=== PATIENT | male | born 1970 | race Two or more races ===

== ENCOUNTER 2020-03-06 12:18 | Inpatient (IN) | payer OTHER ==
[~2020-03-06] VITALS: Ht 165.1 cm; Wt 97.3 kg
[2020-03-06] MEDS ORDERED: SODIUM CHLORIDE 0.9% 1,000 ML IV ONE ×2 (12:22)
[2020-03-06] MEDS ORDERED: MORPHINE SULFATE 4 MG/ML SYR/VIAL IV ONE (12:30)
[2020-03-06] MEDS ORDERED: ONDANSETRON HCL 4 MG/2 ML VIAL IV ONE (12:30)
[2020-03-06] MEDS ORDERED: InsuLIN REG 1unit/0.01ml Soln (100units/ml) IV ONE ×2 (12:30→13:15)
[2020-03-06 13:34] LABS: Basophils # (auto) 0.1 10 ^3/uL (0-0.2); Basophils % (auto) 0.7 % (0.0-2.0); Eosinophils # (auto) 0.1 10 ^3/uL (0-0.8); Eosinophils % (auto) 0.8 % (0.0-7.0); Hematocrit 43.6 % (41.0-53.0); Hemoglobin 15.4 g/dL (13.5-17.5); Lymphocytes # (auto) 3.3 10 ^3/uL (0.4-5.4); Lymphocytes % (auto) 33.9 % (10.0-50.0); Mean Corpuscular Hemoglobin 29.6 pg (28.0-32.0); Mean Corpuscular Hgb Conc. 35.3 g/dL (32.0-36.0); Monocytes # (auto) 0.6 10 ^3/uL (0-1.3); Monocytes % (auto) 6.4 % (0.0-12.0); Neutrophils # (auto) 5.7 10 ^3/uL (1.6-8.6); Neutrophils % (auto) 58.2 % (37.0-80.0); Nucleated Red Blood Cells % 0.1 %; Platelet Count (auto) 288 10^3/uL (140-450); Red Blood Cells 5.18 10^6/uL (4.5-5.90); Red Cell Distribution Width 13.6 % (11.8-14.3); White Blood Cell 9.8 10^3/uL (4.4-10.8)
[2020-03-06 13:50] LABS: INR 0.97 (0.9-1.15); Partial Thromboplastin Time 24.8 sec (23.64-32.05)
[2020-03-06 13:57] LABS: Albumin 3.5 g/dL (3.4-5.0); Anion Gap 7 (5-15); Blood Urea Nitrogen 14 mg/dL (7-18); Calcium 8.3 mg/dL (8.5-10.1); Carbon Dioxide 23 mmol/L (21-32); Chloride 103 mmol/L (98-107); Glucose 255 mg/dL (74-106); Potassium 3.6 mmol/L (3.5-5.1); Sodium 133 mmol/L (136-145)
[2020-03-06 14:03] LABS: Alanine Aminotransferase 31 U/L (16-61); Alkaline Phosphatase 80 U/L (45-117); Aspartate Aminotransferase 16 U/L (15-37); BUN/Creatinine Ratio 18.9; Bilirubin, Total 0.4 mg/dL (0.2-1.0); GFR African American 143 mL/min; GFR Non-African American 119 mL/min; Total Protein 7.6 g/dL (6.4-8.2)
[2020-03-06] MEDS ORDERED: MORPHINE SULF INJ 2 MG/ML SYRINGE 1ML IV PRN (15:15)
[2020-03-06] MEDS ORDERED: NITROGLYCERIN 0.4 MG SL TAB SL PRN (15:15)
--- NOTE | 2020-03-06 17:00 | NUR ---
PATIENT ARRIVED TO UNIT. A&OX4. PATIENT HAS NO S/S OF DISTRESS NOTED AT THIS TIME.
[2020-03-06 18:04] LABS: Urine Bacteria NONE SEEN /hpf (None Seen); Urine Blood Negative /uL (Negative); Urine Mucus FEW (None Seen); Urine Specific Gravity 1.013 (1.001-1.035); Urine WBC 1 /hpf (0 - 3)
--- NOTE | 2020-03-06 19:30 | NUR ---
Called/paged Dr. Bauer called regarding patient complaining of headache and requesting pain meds. Waiting for call back. Continue care.
--- NOTE | 2020-03-06 19:30 | NUR ---
Opening Shift Note Assumed care of patient, awake and alert. No S/S of distress/SOB or pain. Instructed on POC and to call for assist PRN. Bed in lowest locked position, call light within reach, side rails upx2. Will continue to monitor for changes Q1hr and PRN.
--- NOTE | 2020-03-06 20:00 | NUR ---
Called/paged Dr. Bauer repaged regarding patient requesting pain medication. Waiting for call back.Continue care.
--- NOTE | 2020-03-06 21:05 | NUR ---
Received report from Wilson Tuttle to assume care.
--- NOTE | 2020-03-06 21:05 | NUR ---
Endorsed patient care Endorsed care of patient to Leslie RN.
[2020-03-06 22:00] VITALS: BP 140/78
--- NOTE | 2020-03-06 22:00 | NUR ---
Paged for pain med for headache with order of Machias 10/325mg.one tab.p.o as needed every four hour.
[2020-03-06] MEDS: HYDROcodone-ACET 10/325MG TAB PO PRN (22:45)
[2020-03-07] VITALS (7 sets, daily range): BP systolic 115–138; BP diastolic 71–96
[2020-03-07] MEDS ORDERED: METF-370 PO (00:36)
--- NOTE | 2020-03-07 07:11 | NUR ---
Report given to Wilson Pelayo, patient is resting and to follow-up to Soham if he wants to have sliding scale for accucheck.
--- NOTE | 2020-03-07 07:30 | NUR ---
Opening Shift Note Assumed care of patient, awake and alert. No S/S of distress/SOB or pain. Instructed on POC and to call for assist PRN, will continue to monitor for changes Q1hr and PRN.
[2020-03-07] MEDS: LISINOPRIL 10 MG TAB PO SCH (09:39)
[2020-03-07] MEDS: ASPirin-EC 81 mg tab PO SCH (09:39)
[2020-03-07] MEDS: METOPROLOL TARTRATE 25 MG TAB PO SCH (09:39)
[2020-03-07] MEDS ORDERED: DEXTROSE (50%) 50ML SYRG IV PRN (14:45)
[2020-03-07] MEDS: ACCU-CHEK COMFORT CURVE STRIP VI SCH ×2 (17:25→21:55)
[2020-03-07] MEDS: InsuLIN REG 1unit/0.01ml Soln (100units/ml) SC SCH ×2 (17:25→21:57)
--- NOTE | 2020-03-07 17:46 | NUR ---
patient and belongings moved to room 270b
--- NOTE | 2020-03-07 20:10 | NUR ---
Opening Shift Note Assumed care of patient, awake and alert. No S/S of distress/SOB. Patient is on room air. Respirations even and unlabored. Patient reports 9/10 headache. Patient will be medicated with PRN pain medication per MD order. Instructed on POC and to call for assist PRN, will continue to monitor for changes Q1hr and PRN.
[2020-03-07] MEDS: HYDROcodone-ACET 10/325MG TAB PO PRN (20:12)
--- NOTE | 2020-03-07 20:12 | NUR ---
Patient agrees to take Ringgold 10/325 mg PO tablet for 9/10 headache. Will continue to monitor patient.
--- NOTE | 2020-03-07 21:12 | NUR ---
Patient has no complaints of pain.
[2020-03-08] VITALS (7 sets, daily range): BP systolic 106–136; BP diastolic 68–93
--- NOTE | 2020-03-08 01:10 | NUR ---
IV removal from right hand due to clotting. IV DC'd with clean sterile technique, catheter fully intact. Pressure dressing applied to site. Patient tolerated well. Addendum: 03/09/20 at 0413 by Kaila Taveras RN Correct date is 03/09/20
[2020-03-08] MEDS: ACCU-CHEK COMFORT CURVE STRIP VI SCH ×4 (06:25→21:50)
[2020-03-08] MEDS: InsuLIN REG 1unit/0.01ml Soln (100units/ml) SC SCH ×4 (06:26→21:50)
--- NOTE | 2020-03-08 07:00 | NUR ---
CLOSING NOTE No S/S of distress/SOB or pain. Patient is on room air. Respirations even and unlabored.
[2020-03-08] MEDS: ASPirin-EC 81 mg tab PO SCH (09:31)
[2020-03-08] MEDS: METOPROLOL TARTRATE 25 MG TAB PO SCH (09:32)
[2020-03-08] MEDS: LISINOPRIL 10 MG TAB PO SCH (09:32)
[2020-03-08] MEDS: ENOXAPARIN SOD 40 MG/0.4 ML SYRINGE SC SCH (09:33)
[2020-03-08] MEDS: HYDROcodone-ACET 10/325MG TAB PO PRN ×2 (14:28→19:59)
--- NOTE | 2020-03-08 19:59 | NUR ---
Patient agrees to take Jackson 10/325 mg PO tablet for 9/10 headache. Will continue to monitor patient.
--- NOTE | 2020-03-08 20:59 | NUR ---
Patient has no complaints of pain.
[2020-03-09] MEDS: HYDROcodone-ACET 10/325MG TAB PO PRN ×2 (00:02→23:52)
--- NOTE | 2020-03-09 00:02 | NUR ---
Patient agrees to take Allen[place] 10/325 mg PO tablet for 9/10 headache. Will continue to monitor patient.
--- NOTE | 2020-03-09 01:02 | NUR ---
Patient has no complaints of pain.
--- NOTE | 2020-03-09 01:10 | NUR ---
IV removal from right hand due to clotting. IV DC'd with clean sterile technique, catheter fully intact. Pressure dressing applied to site. Patient tolerated well.
--- NOTE | 2020-03-09 01:15 | NUR ---
IV insertion IV access obtained, via clean sterile technique by inserting 20 gauge catheter at right forearm after 1 attempt by Bisi CONWAY. IV secured properly. No trauma to site. Patient tolerated well. This RN had 3 previous unsuccessful attempts.
--- NOTE | 2020-03-09 01:20 | NUR ---
IV insertion IV access obtained, via clean sterile technique by inserting 20 gauge catheter at right forearm after 1 attempt by Bisi CONWAY. IV secured properly. No trauma to site. Patient tolerated well.
[2020-03-09 05:10] VITALS: BP 120/66
[2020-03-09] MEDS: ACCU-CHEK COMFORT CURVE STRIP VI SCH ×4 (06:17→23:17)
[2020-03-09] MEDS: InsuLIN REG 1unit/0.01ml Soln (100units/ml) SC SCH ×4 (06:17→23:18)
--- NOTE | 2020-03-09 07:00 | NUR ---
CLOSING NOTE No S/S of distress/SOB or pain. Patient is on room air. Respirations even and unlabored.
--- NOTE | 2020-03-09 07:00 | NUR ---
Opening Shift Note Received report on the patient. Awake lying in bed. Patient shows no signs of distress at this time. Discussed the plan with the patient. Bed in lowest position, side rails up x2, and the call light is within reach.
[2020-03-09] MEDS ORDERED: ADENOSINE 83 MG in GIVE UN-DILUTED 0 ML IV STA (08:12)
[2020-03-09 09:00] VITALS: BP 148/85
[2020-03-09 09:48] VITALS: BP 139/97
[2020-03-09] MEDS: ASPirin-EC 81 mg tab PO SCH (11:34)
[2020-03-09] MEDS: METOPROLOL TARTRATE 25 MG TAB PO SCH (11:35)
[2020-03-09] MEDS: LISINOPRIL 10 MG TAB PO SCH (11:36)
[2020-03-09] MEDS: ENOXAPARIN SOD 40 MG/0.4 ML SYRINGE SC SCH (11:36)
[2020-03-09 13:00] VITALS: BP_SYST 115; BP_SYST 143; BP_DIAS 70; BP_DIAS 71
[2020-03-09 16:45] VITALS: BP_SYST 129; BP_SYST 136; BP_DIAS 79; BP_DIAS 91
--- NOTE | 2020-03-09 19:40 | NUR ---
Opening Shift Note Assumed care of patient, awake and alert. No S/S of distress/SOB or pain. Penitentiary guards at bedside. Instructed on POC and to call for assist PRN, patient verbalized understanding. Safety precaution in place, call light within reach, will continue to monitor for changes Q1hr and PRN.
[2020-03-09 21:51] VITALS: BP 144/89
[2020-03-10 05:00] VITALS: BP 110/77
[2020-03-10] MEDS: ACCU-CHEK COMFORT CURVE STRIP VI SCH ×4 (06:18→22:13)
[2020-03-10] MEDS: InsuLIN REG 1unit/0.01ml Soln (100units/ml) SC SCH ×4 (06:19→22:12)
[2020-03-10 09:00] VITALS: BP 145/92
[2020-03-10] MEDS: ENOXAPARIN SOD 40 MG/0.4 ML SYRINGE SC SCH ×2 (10:00→10:52)
[2020-03-10] MEDS: METOPROLOL TARTRATE 25 MG TAB PO SCH (10:51)
[2020-03-10] MEDS: ASPirin-EC 81 mg tab PO SCH (10:51)
[2020-03-10] MEDS: LISINOPRIL 10 MG TAB PO SCH (10:52)
[2020-03-10 13:00] VITALS: BP 135/74
--- NOTE | 2020-03-10 13:13 | NUR ---
Nutrition Assessment Notes Please refer to link for full assessment notes. Est Energy needs: 6046-2734 kcals (14-18 kcal/kgBW) Est Protein needs: 96-124 gms/day (1.0-2.0 gm/kgBW) d/t obesity Will continue to monitor and reassess prn. Addendum: 03/10/20 at [address] Amended: Links added.
[2020-03-10] MEDS: HYDROcodone-ACET 10/325MG TAB PO PRN ×2 (15:53→20:28)
[2020-03-10 16:58] VITALS: BP 115/79
--- NOTE | 2020-03-10 20:29 | NUR ---
open note assumed care of pt. upon entering room pt awake, alert and oriented x4. pt on room air no distress noted or expressed. pt updated on plan of care. pt aware of possible left heart cath in the AM. consents have yet to be signed as patient has yet to have procedure explained to him by physician. pt bed locked, low and 2x rails up. call light in reach. this nurse to round q1hr and prn.
[2020-03-10 22:00] VITALS: BP 149/93
--- NOTE | 2020-03-10 22:39 | NUR ---
josselyn at bedside. made pt aware of left heart cath in the AM. pt to be NPO after midnight. consents to be signed.
[2020-03-11 05:00] VITALS: BP 96/46
[2020-03-11] MEDS: ACCU-CHEK COMFORT CURVE STRIP VI SCH ×4 (06:21→21:52)
[2020-03-11] MEDS: InsuLIN REG 1unit/0.01ml Soln (100units/ml) SC SCH ×4 (06:23→21:52)
[2020-03-11 08:49] VITALS: BP 139/77
[2020-03-11] MEDS: ENOXAPARIN SOD 40 MG/0.4 ML SYRINGE SC SCH (09:25)
[2020-03-11] MEDS: ASPirin-EC 81 mg tab PO SCH (09:30)
[2020-03-11] MEDS: METOPROLOL TARTRATE 25 MG TAB PO SCH (09:31)
[2020-03-11] MEDS: LISINOPRIL 10 MG TAB PO SCH (09:34)
--- NOTE | 2020-03-11 09:52 | NUR ---
Patient down to laborer sawmill. No signs of distress at this time.
[2020-03-11] MEDS ORDERED: fentaNYL CITRATE 100 MCG/2 ML VL ONE (09:56)
[2020-03-11] MEDS ORDERED: SODIUM CHL 0.9% 0 ML ONE (09:56)
[2020-03-11] MEDS ORDERED: MIDAZOLAM HCL 1MG/1ML-2 ML VIAL ONE (09:56)
[2020-03-11] MEDS ORDERED: ANGIOMAX 250 MG VIAL IV ONE (09:56)
[2020-03-11] MEDS ORDERED: LIDOCAINE 2%HCL (LOCAL ANESTH.) INJ 20ML MDV ONE ×2 (09:57→11:00)
--- NOTE | 2020-03-11 12:29 | NUR ---
Patient back from biological lab technician. No signs of distress. Patient was sitting when he was no supposed to. Laid the patient back down and checked for any bleeding. None noted. Will continue to monitor.
--- NOTE | 2020-03-11 14:48 | NUR ---
Called [facility] and let her know about the transfer to a higher level of care.
--- NOTE | 2020-03-11 15:52 | NUR ---
4715 03/11/20 I called [facility] Patcher Helper Ania and left her a message regarding the transfer to higher level of care order for this patient. I faxed transfer order/clinical information to [facility] and [facility]. [facility] (contracted with [facility]) does not do cardio-thoracic surgery.
[2020-03-11 17:00] VITALS: BP 93/56
--- NOTE | 2020-03-11 17:00 | NUR ---
1645 03/11/20 I received a call from Letitia at [facility] Transfer Center letting me know that they need a COVID-19 test done on this patient prior to transfer. Her berkley department also needs to connect with [facility] regarding the financial part since they are not contracted with [facility]. I spoke with nurse Edwards to update her on the status of the transfer and to request COVID-19 test.
--- NOTE | 2020-03-11 19:20 | NUR ---
Opening Shift Note Assumed care of patient, awake and alert. No S/S of distress/SOB or pain. Instructed on POC and to call for assist PRN. Bed in lowest locked position, call light within reach, side rails up x2. Will continue to monitor for changes Q1hr and PRN.
[2020-03-11] MEDS: HYDROcodone-ACET 10/325MG TAB PO PRN (20:01)
[2020-03-11 22:22] VITALS: BP 122/73
[2020-03-12 05:07] VITALS: BP 111/73
[2020-03-12] MEDS: ACCU-CHEK COMFORT CURVE STRIP VI SCH ×4 (06:40→22:11)
[2020-03-12] MEDS: InsuLIN REG 1unit/0.01ml Soln (100units/ml) SC SCH ×4 (06:41→22:22)
[2020-03-12] MEDS: HYDROcodone-ACET 10/325MG TAB PO PRN ×2 (06:42→11:02)
--- NOTE | 2020-03-12 07:30 | NUR ---
Opening Shift Note Assumed care of patient, awake and alert. No S/S of distress/SOB or pain. Instructed on POC and to call for assist PRN, will continue to monitor for changes Q1hr and PRN. Fall precautions in place per safety protocol.
--- NOTE | 2020-03-12 08:54 | NUR ---
0850 03/12/20 I faxed COVID-19 test result to [facility]. I called [facility] Transfer Center and spoke with Ford, he said they did receive the test result. I provided Ford with [facility] End Finder Forming Department Ania's contact information-he will provide it to his berkley department. I called [facility] End Finder Forming Department Ania [phone] and left a message letting her know that they would be contacting her.
[2020-03-12 09:00] VITALS: BP 98/71
--- NOTE | 2020-03-12 09:13 | NUR ---
0910 03/12/20 I received a call from [facility] Regional Sales Manager Ania letting me know that she contacted Theresa at her berkley department-she will contact the berkley department at [facility].
[2020-03-12] MEDS: ASPirin-EC 81 mg tab PO SCH (09:58)
[2020-03-12] MEDS: ENOXAPARIN SOD 40 MG/0.4 ML SYRINGE SC SCH ×2 (09:58→10:00)
[2020-03-12] MEDS: METOPROLOL TARTRATE 25 MG TAB PO SCH (10:00)
[2020-03-12] MEDS: LISINOPRIL 10 MG TAB PO SCH (10:00)
--- NOTE | 2020-03-12 11:00 | NUR ---
PAIN Patient requesting pain medication for pain of 7/10. Will administer available norco and cont to monitor patient.
--- NOTE | 2020-03-12 12:00 | NUR ---
Hospitalist MD Bauer at bedside, aware of patient status. No new orders received at this time. Still pending transfer placement for higher level of care. Will cont to monitor patient.
[2020-03-12 13:00] VITALS: BP 100/61
--- NOTE | 2020-03-12 13:17 | NUR ---
Faxed transfer request to [facility].
--- NOTE | 2020-03-12 13:51 | NUR ---
1345 03/12/20 I received a message from [facility] Draw In Hand Ania asking me to reach out to [facility] for transfer of this patient. I faxed transfer order to [facility]. I spoke with Ford at [facility] Transfer Center, he asked if we need cardiology instead of cardio thoracic due to the fact that in Dr. Albrecht's note he states patient not a surgical candidate. I placed a call to Dr. Bauer for clarification-left message. I also spoke with patient's nurse and asked her to relay the message to Dr. Bauer in case he comes in.
--- NOTE | 2020-03-12 14:18 | NUR ---
1400 03/12/20 I spoke with Julián at [facility] [phone]-faxed him COVID-19 result and [facility] report. Per Julián, our attending physician needs to contact their printing press machine operator, cardio thoracic and internal medicine doctors to see if they will be willing to accept this patient before they will look for an available bed. I called Dr. Bauer and left him a message regarding the same-provided him with cardiology Dr. Otero [phone], cardio thoracic Dr. Dean [phone] and hospitalist number [phone] so he can call them and see if they will accept this patient. I called [facility] Card Maker Ania and left a message updating her on the status of the transfer and that I am trying to get a hold of Dr. Bauer.
[2020-03-12 17:00] VITALS: BP 116/83
--- NOTE | 2020-03-12 19:15 | NUR ---
Opening Shift Note Assumed care of patient, awake, alert and oriented x4, on room air with even and unlabored respirations, no S/S of distress/SOB or pain. Patient able to turn in bed independently, bed in lowest locked position, side rails up x2, and call light within reach. Instructed on POC and to call for assist PRN, will continue to monitor for changes Q1hr and PRN.
[2020-03-12 21:47] VITALS: BP 138/94
--- NOTE | 2020-03-13 00:30 | NUR ---
[facility] TRANSFER CENTER KAYCEE FROM [facility] TRANSFER [facility] CALLED REGARDING PATIENT TRANSFER. SHE SAID SHE WILL WORK ON THE TRANSFER AND THAT WE NEED TO SPEAK WITH GOVERNMENT PROFESSOR ABOUT TRANSFERRING TO [facility]. [facility] WILL ALSO NEED AUTHORIZATION FROM INSURANCE AND TREATMENT AGREEMENT FORM FILLED OUT. TREATMENT AGREEMENT FORM PLACED IN PATIENTS CHART, AWAITING DISCHARGE ORDERS FROM DR. Cameron GALLAGHER AND CONFIRMATION FROM GOVERNMENT PROFESSOR/FACILITY.
[2020-03-13 04:55] VITALS: BP 121/81
--- NOTE | 2020-03-13 06:15 | NUR ---
[facility] TRANSFER KAYCEE ([phone]) FROM [facility] CALLED WITH AVAILABLE ROOM, PATIENT WILL AT [facility] BED 200B. AWAITING TRANSFER ORDERS FROM DR. JAMI GALLAGHER, CONFIRMATION FROM [facility] AND AUTHORIZATION OF INSURANCE, AND TREATMENT AGREEMENT FORM. PHONE NUMBER FOR [facility] [phone]
[2020-03-13] MEDS: InsuLIN REG 1unit/0.01ml Soln (100units/ml) SC SCH ×4 (06:57→22:07)
[2020-03-13] MEDS: ACCU-CHEK COMFORT CURVE STRIP VI SCH ×4 (06:57→22:01)
[2020-03-13 09:00] VITALS: BP 100/74
--- NOTE | 2020-03-13 09:22 | NUR ---
I received a message from Floresita at the [facility] Transfer Center letting me know that they are declining this patient for transfer.
[2020-03-13] MEDS: METOPROLOL TARTRATE 25 MG TAB PO SCH (09:23)
[2020-03-13] MEDS: ASPirin-EC 81 mg tab PO SCH (09:23)
--- NOTE | 2020-03-13 09:38 | NUR ---
0930 03/13/20 I received a call from nurse Ren letting me know that last night Dr. Justine Gonzalez had reached out to a physician at [facility] who accepted this patient and that they have a bed for him. I called [facility] Marine Engine Mechanic Ania to see if that would be a possibility, I also let her know that [facility] has declined this patient for transfer, and that I hadn't heard back from Dr. Bauer yesterday despite my 2 phone calls-message left for Ania.
[2020-03-13] MEDS: ENOXAPARIN SOD 40 MG/0.4 ML SYRINGE SC SCH (10:00)
[2020-03-13] MEDS: LISINOPRIL 10 MG TAB PO SCH (10:00)
--- NOTE | 2020-03-13 11:14 | NUR ---
1110 03/13/20 I contacted [facility] and spoke with pump house engineer Siria regarding transfer request. Per Siria, our attending physician has to call their department specialist, cardio thoracic MD and hospitalist to see if they will accept before they will look for a bed. I asked Siria if it would be the same doctors that were on yesterday-she is going to have to give me a call back. I called [facility] and left message for pump house engineer asking about bed availability and if this is a patient that they could accept.
[2020-03-13] MEDS: HYDROcodone-ACET 10/325MG TAB PO PRN (11:49)
--- NOTE | 2020-03-13 11:54 | NUR ---
PAIN Patient requesting pain medication for pain 05/18. Administered available norco. Will reassess and cont to monitor patient.
[2020-03-13 13:00] VITALS: BP 111/77
--- NOTE | 2020-03-13 14:07 | NUR ---
Nutrition Followup Notes Pt wt is 97.1 kg. Pt is waiting for transfer orders to [facility] per MD doc. Pt is on a Cardiac 2g,lowfat,lowphos diet, appetite is good aeb 100% PO intake over two meals. Suggest a CCHO 45g diet with current diet order. Pt with no distress. Will continue to closely monitor pertinent labs, PO intake and skin status prn. Will followup in 3-5 days Est Energy needs: 6134-0448 kcals (14-18 kcal/kgBW) Est Protein needs: 96-124 gms/day (1.0-2.0 gm/kgBW) d/t obesity Will continue to monitor and reassess prn. LABS: POC GLUC 187 H, A1c 9.8 H GI: Last BM noted on 03/11 per RN doc. BS: 21 low risk, Please refer to wound assessment report for full details. PES: Problem 1) Food and nutrition related knowledge deficit r/t dietary non-compliance aeb pt eats a regular diet 2) Obesity r/t energy intake in excess of energy needs aeb 156% IBW and BMI of 35.3 kg/m2 3) Altered nutrition related lab values r/t current/chronic medical condition aeb hyperglycemia, elev A1c Comments Will continue to closely monitor pertinent labs, PO intake and skin status prn. Will followup in 3-5 days 1) Continue to closely monitor pt PO intake to meet at least 75% of meals 2) Consider a CCHO 45g diet 3) Continue current plan of care
--- NOTE | 2020-03-13 15:33 | NUR ---
1520 03/13/20 I received a message from [facility] Rn Mental Health Ania letting me know that she referred this case to her supervisor assembly department asking if we can send this patient to [facility]-she is waiting to hear back. I called provided number for Sari Ramirez-[facility] Machinist Bench [phone] and left message asking if we are able to send this patient to [facility]. I called [facility] and left message for laborer beam house asking about bed availability.
[2020-03-13 16:38] VITALS: BP 105/72
--- NOTE | 2020-03-13 19:06 | NUR ---
Endorse report to night benigno Worthington. Patient in no distress, sob, or pain at this time.
[2020-03-13 21:44] VITALS: BP 112/68
[2020-03-14 04:53] VITALS: BP 119/74
[2020-03-14] MEDS: ACCU-CHEK COMFORT CURVE STRIP VI SCH ×4 (06:49→21:59)
[2020-03-14] MEDS: InsuLIN REG 1unit/0.01ml Soln (100units/ml) SC SCH ×4 (07:00→21:59)
--- NOTE | 2020-03-14 08:00 | NUR ---
OPENING SHIFT NOTE: PATIENT RESTING IN BED EATING BREAKFAST INDEPENDENTLY. UPDATED ON PLAN OF CARE, PATIENT VERBALIZED UNDERSTANDING. RESPIRATIONS EVEN AND UNLABORED. CALL LIGHT WITHIN REACH, WILL CONTINUE TO MONITOR.
[2020-03-14 09:00] VITALS: BP 112/72
[2020-03-14] MEDS: ASPirin-EC 81 mg tab PO SCH (09:38)
[2020-03-14] MEDS: LISINOPRIL 10 MG TAB PO SCH (09:38)
[2020-03-14] MEDS: METOPROLOL TARTRATE 25 MG TAB PO SCH (09:38)
[2020-03-14] MEDS: ENOXAPARIN SOD 40 MG/0.4 ML SYRINGE SC SCH (09:39)
[2020-03-14 13:00] VITALS: BP 110/75
[2020-03-14 16:59] VITALS: BP 110/78
[2020-03-14] MEDS: HYDROcodone-ACET 10/325MG TAB PO PRN (18:12)
--- NOTE | 2020-03-14 19:16 | NUR ---
CARE ENDORSED TO MUSHTAQ CONWAY.
--- NOTE | 2020-03-14 19:20 | NUR ---
Opening Shift Note Received report from lidya Cook RN. Assumed care of patient, awake and alert. No S/S of distress/SOB or pain. Guards at bedside. Instructed on POC and to call for assist PRN, will continue to monitor for changes Q1hr and PRN.
[2020-03-14 22:00] VITALS: BP 105/69
--- NOTE | 2020-03-14 22:44 | NUR ---
Dressing to right groin is clean, dry and intact. No hematoma or redness noted.
[2020-03-15 05:00] VITALS: BP 120/72
[2020-03-15] MEDS: HYDROcodone-ACET 10/325MG TAB PO PRN ×2 (05:45→20:40)
[2020-03-15] MEDS: InsuLIN REG 1unit/0.01ml Soln (100units/ml) SC SCH ×4 (06:18→22:09)
[2020-03-15] MEDS: ACCU-CHEK COMFORT CURVE STRIP VI SCH ×4 (06:19→21:35)
--- NOTE | 2020-03-15 06:52 | NUR ---
PATIENT IS RESTING IN BED WITH EYES CLOSED, NO DISTRESS NOTED SATURATING AT 95% ON ROOM AIR AND PATIENT DENIES PAIN. BLOOD SUGAR IS 112, NO COVERAGE
--- NOTE | 2020-03-15 07:40 | NUR ---
OPENING SHIFT NOTE: PATIENT RESTING IN BED, EASILY AWOKEN. UPDATED ON PLAN OF CARE, PATIENT VERBALIZED UNDERSTANDING. RESPIRATIONS EVEN AND UNLABORED. CALL LIGHT WITHIN REACH, WILL CONTINUE TO MONITOR.
[2020-03-15] MEDS: METOPROLOL TARTRATE 25 MG TAB PO SCH (08:54)
[2020-03-15] MEDS: ASPirin-EC 81 mg tab PO SCH (08:54)
[2020-03-15] MEDS: ENOXAPARIN SOD 40 MG/0.4 ML SYRINGE SC SCH (08:55)
[2020-03-15] MEDS: LISINOPRIL 10 MG TAB PO SCH (08:55)
[2020-03-15 09:00] VITALS: BP_SYST 136; BP_SYST 99; BP_DIAS 67; BP_DIAS 87
[2020-03-15 13:00] VITALS: BP 105/78
[2020-03-15 16:52] VITALS: BP 131/80
--- NOTE | 2020-03-15 19:08 | NUR ---
CARE ENDORSED TO MUSHTAQ CONWAY.
[2020-03-15 22:00] VITALS: BP 113/70
--- NOTE | 2020-03-15 22:30 | NUR ---
IV removal IVs to right forearm DC'd with clean sterile technique, catheter fully intact. Pressure dressing applied to site. Patient tolerated well.
--- NOTE | 2020-03-15 23:01 | NUR ---
IV insertion IV access obtained, via clean sterile technique by inserting 22 gauge catheter at right hand after first attempt. IV secured properly. No trauma to site. Patient tolerated procedure well.
[2020-03-16 04:54] VITALS: BP 105/65
[2020-03-16] MEDS: InsuLIN REG 1unit/0.01ml Soln (100units/ml) SC SCH ×4 (07:00→22:25)
[2020-03-16] MEDS: ACCU-CHEK COMFORT CURVE STRIP VI SCH ×4 (07:01→22:03)
[2020-03-16] MEDS: HYDROcodone-ACET 10/325MG TAB PO PRN ×3 (07:01→22:27)
--- NOTE | 2020-03-16 08:57 | NUR ---
ordered transfer CD
--- NOTE | 2020-03-16 08:57 | NUR ---
Carpenter Assembler faxed paperwork to Vicky in regards to transfer.
--- NOTE | 2020-03-16 08:58 | NUR ---
[facility] Transfer Center Room no longer available they need a transfer agreement and authorization.
--- NOTE | 2020-03-16 09:02 | NUR ---
0900 03/16/20 I spoke with [facility] synthetic department supervisor Sari [phone] regarding the transfer of this patient. Per Sari, she is working on the authorization for this patient to go to [facility]. I called [facility] transfer center [phone] and spoke with Cora Ray to update her on the status of the [employer] [facility] authorization.
[2020-03-16 09:13] VITALS: BP 122/72
--- NOTE | 2020-03-16 10:12 | NUR ---
1000 03/16/20 I received a call from Cora Ray at the [facility] Transfer Center letting me know that they will require an VANESSA from [facility]. I provided her with contact information for Sari at [facility].
[2020-03-16] MEDS: ASPirin-EC 81 mg tab PO SCH (10:31)
[2020-03-16] MEDS: METOPROLOL TARTRATE 25 MG TAB PO SCH (10:32)
[2020-03-16] MEDS: LISINOPRIL 10 MG TAB PO SCH (10:33)
[2020-03-16] MEDS: ENOXAPARIN SOD 40 MG/0.4 ML SYRINGE SC SCH (10:33)
--- NOTE | 2020-03-16 11:07 | NUR ---
Nutrition Followup Notes WT: 97.3 KG Pt is waiting for transfer orders to [facility] [[email or web address] per MD doc. Pt is on a Cardiac diet with adequate PO of > 75% x 4 per RN doc. Est Energy needs: 6061-2801 kcals (14-18 kcal/kgBW), Est Protein needs: 96-124 gms/day (1.0-2.0 gm/kgBW) d/t obesity. Will continue to monitor and reassess prn. LABS: POC GLU 162 H. no new labs today GI: Last 2 BM noted on 03/14 per RN doc. BS: 21 low risk, Please refer to wound assessment report for full details. PES: Problem 1) Food and nutrition related knowledge deficit r/t dietary non-compliance aeb pt eats a regular diet 2) Obesity r/t energy intake in excess of energy needs aeb 156% IBW and BMI of 35.3 kg/m2 3) Altered nutrition related lab values r/t current/chronic medical condition aeb hyperglycemia, elev A1c Comments Will continue to closely monitor pertinent labs, PO intake and skin status prn. Will followup in 3-5 days 1) Continue to closely monitor pt PO intake to meet at least 75% of meals 2) Consider a CCHO 45g diet along with current diet (already esigned) 3) Continue current plan of care
--- NOTE | 2020-03-16 11:45 | NUR ---
DR. GALLAGHER GAVE VERBAL ORDER. OK FOR PATIENT TO SHOWER.
--- NOTE | 2020-03-16 13:13 | NUR ---
SPOKE TO [facility] TRANSFER CENTER, WAITING FOR VANESSA FROM [facility].
[2020-03-16 13:30] VITALS: BP 100/61
[2020-03-16 13:58] VITALS: BP 122/72
--- NOTE | 2020-03-16 14:25 | NUR ---
1420 03/16/20 I received a call from [facility] supervisor tank house Sari [phone] letting me know that the VANESSA has been completed. I called [facility] [phone] and spoke with Diamond, she is going to verify that it is complete on her end and will give me a call back.
[2020-03-16 16:43] VITALS: BP 103/60
--- NOTE | 2020-03-16 17:16 | NUR ---
PAGED SALES TRAINING COORDINATOR REFERRAL MANAGEMENT LIAISON. IN REGARDS TO AMBULANCE TRANSPORT FOR PATIENT TO [facility]
--- NOTE | 2020-03-16 17:59 | NUR ---
I placed SUAD on will call ([phone])-spoke with Jorge-pending transfer to [facility].
--- NOTE | 2020-03-16 19:27 | NUR ---
RECEIVED PATIENT FROM DAY SHIFT RN. PATIENT RESTING IN BED. NO S/S OF DISTRESS NOTED. DENIED PAIN FOR NOW. DRESSING REMOVED FROM RIGHT GROIN. PATIENT TOLERATED WELL. NO S/S OF BLEED NOTED. POC INSTRUCTED AND ENCOURAGED PATIENT TO CALL FOR CANNON CREWMEMBER IF NEEDED. BED IN LOWEST POSITION WITH SIDE RAILS UP X 2. CALL BRITO WITHIN REACH. GUARDS AT BEDSIDE. CONTINUE TO MONITOR FOR CHANGES Q1H AND PRN.
[2020-03-16 22:00] VITALS: BP 146/72
--- NOTE | 2020-03-16 22:20 | NUR ---
ACCU-CHECK, BS 207. INSULIN GIVEN ORDERED. CONTINUE TO MONITOR.
--- NOTE | 2020-03-16 23:20 | NUR ---
REASSESSED PAIN. PATIENT SLEEPING. NO S/S OF PAIN NOTED. CONTINUE TO MONITOR.
--- NOTE | 2020-03-17 02:20 | NUR ---
PATIENT SLEEPING. NO S/S OF DISTRESS NOTED. CONTINUE TO MONITOR.
[2020-03-17 05:00] VITALS: BP 100/64
[2020-03-17] MEDS: ACCU-CHEK COMFORT CURVE STRIP VI SCH ×4 (06:20→21:42)
[2020-03-17] MEDS: InsuLIN REG 1unit/0.01ml Soln (100units/ml) SC SCH ×4 (06:43→22:21)
--- NOTE | 2020-03-17 06:45 | NUR ---
ACCU-CHECK, BS 143. INSULIN GIVEN ORDERED. CONTINUE TO MONITOR.
--- NOTE | 2020-03-17 07:42 | NUR ---
Called [facility] Transfer Center Spoke with Cassie at transfer center. Per Cassie, [facility] have a bed at this time and they do not have a transfer agreement on file. Provided her with our fax number for transfer agreement. She also stated that the accepting facility is currently at full capacity. Provided her with our contact information as well as [facility]. Will notify case management. Addendum: 03/17/20 at 0826 by IRENE DUNN RN RN Faxed paperwork to Vicky in case management.
--- NOTE | 2020-03-17 08:10 | NUR ---
Opening Note Assumed pt care from NOC RN. Pt is a/ox4 with no s/s of distress or SOB. Pt is currently sitting upright in bed with no complaints at this time. Discussed POC with pt and pending tx; pt verbalized understanding. Safety measures maintained with call light within reach, bed in lowest position, and call light within reach. Will continue to monitor.
[2020-03-17 08:37] VITALS: BP 102/68
[2020-03-17] MEDS: METOPROLOL TARTRATE 25 MG TAB PO SCH (09:35)
[2020-03-17] MEDS: ASPirin-EC 81 mg tab PO SCH (09:35)
[2020-03-17] MEDS: LISINOPRIL 10 MG TAB PO SCH (09:36)
[2020-03-17] MEDS: ENOXAPARIN SOD 40 MG/0.4 ML SYRINGE SC SCH (09:36)
[2020-03-17] MEDS: HYDROcodone-ACET 10/325MG TAB PO PRN ×3 (11:19→21:42)
--- NOTE | 2020-03-17 11:36 | NUR ---
Messaged Dr Justine Gonzalez Left message with Dr Justine Gonzalez on status of transfer; currently waiting for bed to open. Will continue to monitor.
[2020-03-17 13:00] VITALS: BP 96/57
--- NOTE | 2020-03-17 13:11 | NUR ---
Transfer Update Spoke with Vicky in case management. Plan is for the pt to be admitted to the [facility] finishing lab technician tomorrow morning. Vicky stated that the plan is to have the pt leave our facility through [facility] tomorrow morning, around 0530. Updated pt and guards. Updated Dr Marks. Will continue to monitor.
--- NOTE | 2020-03-17 13:29 | NUR ---
1325 03/17/20 I received a call from Tiffanie at the [facility] Transfer Center letting me know that they want patient transferred early tomorrow morning to go directly to their cardiac cath technician. They request knot picker cloth time here of [phone]. Patient will be going to [facility] [address], 2nd floor of cardiovascular center building PTU phone [phone], accepting physician Dr. Garry Gonzalez. I called SUAD ([phone]) and spoke with Nadine-knot picker cloth time set for 03/18/20 0530. I relayed this information to nurse Bess. Transfer agreement faxed back to [facility].
[2020-03-17 16:58] VITALS: BP 99/66
--- NOTE | 2020-03-17 19:42 | NUR ---
RECEIVED PATIENT FROM DAY SHIFT RN. PATIENT RESTING IN BED. NO S/S OF DISTRESS NOTED. C/O PAIN @ 3/10 AFTER PAIN MEDICATION RECEIVED EARLIER. POC INSTRUCTED AND ENCOURAGED PATIENT TO CALL FOR LOG CUT OFF SAWYER IF NEEDED. BED IN LOWEST POSITION WITH SIDE RAILS UP X 2. CALL BRITO WITHIN REACH. GUARDS AT BEDSIDE. CONTINUE TO MONITOR FOR CHANGES Q1H AND PRN.
--- NOTE | 2020-03-17 21:45 | NUR ---
PATIENT C/O PAIN @ 02/15, MEDICATED PATIENT ORDERED. CONTINUE TO MONITOR.
[2020-03-17 22:00] VITALS: BP 126/99
--- NOTE | 2020-03-17 22:32 | NUR ---
ACCU-CHECK, BS 254. INSULIN GIVEN ORDERED. CONTINUE TO MONITOR.
--- NOTE | 2020-03-17 23:59 | NUR ---
MD AUGUST AT BEDSIDE.
--- NOTE | 2020-03-18 00:43 | NUR ---
PATIENT IS NPO NOW FOR POSSIBLE PROCEDURE IN THE MORNING. WATER REMOVED FROM BEDSIDE. CONTINUE TO MONITOR.
--- NOTE | 2020-03-18 04:36 | NUR ---
SUAD JUST CALLED THAT THEY WILL NOT COME @ 0530 SINCE STAFFING ISSUE, THE NEXT SCHEDULE WILL BE @ 0615AM. WILL TRY TO CALL [facility] LATER AND PASS THIS INFO. CONTINUE CARE. Addendum: 03/18/20 at 0451 by Harini Herman RN UPDATED TO GUARDS AND PATIENT.
[2020-03-18 05:00] VITALS: BP 112/76
--- NOTE | 2020-03-18 05:18 | NUR ---
CALLED [facility] @ [phone], LEFT MESSAGE TO RN OSCAR SINCE SHE DID NOT KNOW THE CASE AND SHE NEEDS TO TALK TO HER RECEIVING DISTRIBUTION STATION OPERATOR. WAITING FOR OSCAR RN CALL BACK. CONTINUE TO MONITOR.
--- NOTE | 2020-03-18 05:41 | NUR ---
MAN DANIELS CALLED FROM [facility]. REPORT GIVEN. ALL QUESTIONS SETTLED. JEREMIAH AWARE OF ETA FOR PICKING UP FROM HERE WILL BE 0615 AM.
--- NOTE | 2020-03-18 06:15 | NUR ---
Discharge instructions PREPARED AND given BY DAY SHIFT RN as ordered. Encourage to follow up with PMD as instructed. All questions and concerns addressed. Patient verbalized understanding. Medication reconciliation form completed and copy given to patient. IV ACCESS INTACT GO with TO [facility]. Telemetry unit returned to ICU. Patient taken to vehicle via GURNEY with all personal belongings, accompanied by [facility] staff and GUARDS. No distress noted at time of departure.
== END 2020-03-18 06:15 | disposition short-term general hospital (02) | DRG 287 ==
LOC: EDBD 12:18 → EEVIPCON 12:18 → ER 12:18 → TELE 12:19 → TELE-WESTW 16:23
PROVIDERS: ADMIT Internal Medicine; ATTEND Internal Medicine
PROC: 4A023N8 Measurement of Cardiac Sampling and Pressure, Bilateral, Percutaneous Approach (ICD-10-PCS; principal; 2020-03-11)
PROC: B2111ZZ Fluoroscopy of Multiple Coronary Arteries using Low Osmolar Contrast (ICD-10-PCS; 2020-03-11)
PROC: B2181ZZ Fluoroscopy of Left Internal Mammary Bypass Graft using Low Osmolar Contrast (ICD-10-PCS; 2020-03-11)
PROC: B2151ZZ Fluoroscopy of Left Heart using Low Osmolar Contrast (ICD-10-PCS; 2020-03-11)
PROC: B3121ZZ Fluoroscopy of Left Subclavian Artery using Low Osmolar Contrast (ICD-10-PCS; 2020-03-11)
PROC: B41F1ZZ Fluoroscopy of Right Lower Extremity Arteries using Low Osmolar Contrast (ICD-10-PCS; 2020-03-11)
DX: I25.110 Atherosclerotic heart disease of native coronary artery with unstable angina pectoris (principal); E11.65 Type 2 diabetes mellitus with hyperglycemia; E78.5 Hyperlipidemia, unspecified; I10 Essential (primary) hypertension; Z83.3 Family history of diabetes mellitus; Z87.891 Personal history of nicotine dependence; Z03.818 Encounter for observation for suspected exposure to other biological agents ruled out
CPT/HCPCS: 36225; 36415; 71045; 75710; 78452; 80053; 81001; 82962; 83036; 84484; 85025; 85610; 85730; 93005; 93017; 93460; 99152; 99153; C1751; G0378; J0153; J1815; J2250; J2405

== ENCOUNTER 2020-07-29 12:21 | Inpatient (IN) | payer OTHER ==
[~2020-07-29] VITALS: Ht 165.1 cm; Wt 96.4 kg
[~2020-07-29 12:21] MED LIST: METF-370 PO
[2020-07-29] MEDS ORDERED: ASPirin 81 mg TAB PO ONE (12:45)
[2020-07-29 13:33] LABS: Eosinophils # (auto) 0.1 10 ^3/uL (0-0.8); Lymphocytes # (auto) 3.4 10 ^3/uL (0.4-5.4); Mean Corpuscular Volume 79.9 fL (80.0-100.0); Monocytes # (auto) 0.7 10 ^3/uL (0-1.3)
[2020-07-29 13:35] LABS: Basophils # (auto) 0 10 ^3/uL (0-0.2); Basophils % (auto) 0.5 % (0.0-2.0); Eosinophils % (auto) 0.8 % (0.0-7.0); Hematocrit 39.6 % (41.0-53.0); Hemoglobin 13.2 g/dL (13.5-17.5); Lymphocytes % (auto) 36.6 % (10.0-50.0); Mean Corpuscular Hemoglobin 26.6 pg (28.0-32.0); Mean Corpuscular Hgb Conc. 33.3 g/dL (32.0-36.0); Monocytes % (auto) 7.5 % (0.0-12.0); Neutrophils % (auto) 54.6 % (37.0-80.0); Platelet Count (auto) 285 10^3/uL (140-450); Red Blood Cells 4.96 10^6/uL (4.5-5.90); Red Cell Distribution Width 15.6 % (11.8-14.3); White Blood Cell 9.2 10^3/uL (4.4-10.8)
[2020-07-29 13:54] LABS: Partial Thromboplastin Time 24.2 sec (23.0-31.2)
[2020-07-29 14:00] LABS: Albumin 3.3 g/dL (3.4-5.0); Anion Gap 6 (5-15); Blood Urea Nitrogen 11 mg/dL (7-18); Calcium 8.6 mg/dL (8.5-10.1); Carbon Dioxide 26 mmol/L (21-32); Chloride 104 mmol/L (98-107); Glucose 233 mg/dL (74-106); Magnesium 2.1 mg/dL (1.6-2.6); Potassium 3.8 mmol/L (3.5-5.1); Sodium 136 mmol/L (136-145)
[2020-07-29 14:02] LABS: Alanine Aminotransferase 36 U/L (16-61); Aspartate Aminotransferase 19 U/L (15-37); BUN/Creatinine Ratio 15.1; GFR African American 146 mL/min; GFR Non-African American 120 mL/min
[2020-07-29 14:07] LABS: Alkaline Phosphatase 109 U/L (45-117); Bilirubin, Total 0.5 mg/dL (0.2-1.0); Total Protein 7.2 g/dL (6.4-8.2)
[2020-07-29] MEDS ORDERED: MORPHINE SULF INJ 2 MG/ML SYRINGE 1ML IV PRN (16:30)
[2020-07-29] MEDS ORDERED: NITROGLYCERIN 0.4 MG SL TAB SL PRN (16:30)
[2020-07-29] MEDS ORDERED: IOHEXOL 350 MG/ML 100ML IJ ONE (16:41)
[2020-07-29] MEDS ORDERED: ASPI-543 PO (16:41)
[2020-07-29] MEDS ORDERED: METF-370 PO (16:41)
[2020-07-29] MEDS ORDERED: CLOP75TA28 PO (16:41)
[2020-07-29] MEDS ORDERED: METO25TA93 PO (16:41)
[2020-07-29] MEDS ORDERED: GLIP5TAB12 PO (16:41)
[2020-07-29] MEDS: metFORMIN HYDROCHLORIDE 500 MG TAB PO SCH (18:53)
[2020-07-29 22:00] VITALS: BP 125/83
[2020-07-29 22:30] VITALS: BP 125/83
[2020-07-30] MEDS ORDERED: NITR0.4S29 SL (00:41)
[2020-07-30 05:00] VITALS: BP 107/71
[2020-07-30] MEDS: glipiZIDE 5 MG TAB PO SCH (06:46)
[2020-07-30] MEDS ORDERED: ADENOSINE 81 MG in GIVE UN-DILUTED 0 ML IV STA (08:20)
[2020-07-30 08:34] VITALS: BP 115/86
[2020-07-30] MEDS: CLOPIDOGREL BISULFATE 75 MG TAB PO SCH (10:48)
[2020-07-30] MEDS: PANTOPRAZOLE 40 MG TAB PO SCH (10:48)
[2020-07-30] MEDS: ASPirin 81 mg TAB PO SCH (10:48)
[2020-07-30] MEDS: METOPROLOL SUCCINATE XL 50 MG TAB PO SCH (10:49)
[2020-07-30 12:38] VITALS: BP 104/66
[2020-07-30 16:32] VITALS: BP 101/61
[2020-07-30 22:00] VITALS: BP 107/67
[2020-07-31 05:00] VITALS: BP 110/68
[2020-07-31] MEDS: glipiZIDE 5 MG TAB PO SCH (06:48)
[2020-07-31 09:00] VITALS: BP 113/76
[2020-07-31] MEDS: ASPirin 81 mg TAB PO SCH (09:07)
[2020-07-31] MEDS: PANTOPRAZOLE 40 MG TAB PO SCH (09:07)
[2020-07-31] MEDS: CLOPIDOGREL BISULFATE 75 MG TAB PO SCH (09:07)
[2020-07-31] MEDS: METOPROLOL SUCCINATE XL 50 MG TAB PO SCH (09:08)
[2020-07-31 13:00] VITALS: BP 106/64
[2020-07-31 17:00] VITALS: BP 111/76
[2020-07-31] MEDS: metFORMIN HYDROCHLORIDE 500 MG TAB PO SCH ×2 (18:30→18:35)
[2020-07-31 22:00] VITALS: BP 114/70
[2020-08-01] MEDS: TEMAZEPAM 15 MG CAP PO PRN ×2 (01:25→22:05)
[2020-08-01 05:00] VITALS: BP 96/62
[2020-08-01] MEDS: glipiZIDE 5 MG TAB PO SCH (06:38)
[2020-08-01 09:00] VITALS: BP 103/65
[2020-08-01] MEDS: metFORMIN HYDROCHLORIDE 500 MG TAB PO SCH ×2 (09:15→17:07)
[2020-08-01] MEDS: METOPROLOL SUCCINATE XL 50 MG TAB PO SCH (09:16)
[2020-08-01] MEDS: PANTOPRAZOLE 40 MG TAB PO SCH (09:16)
[2020-08-01] MEDS: CLOPIDOGREL BISULFATE 75 MG TAB PO SCH (09:16)
[2020-08-01] MEDS: ASPirin 81 mg TAB PO SCH (09:16)
[2020-08-01 13:00] VITALS: BP 101/67
[2020-08-01 16:24] VITALS: BP 107/72
[2020-08-01 21:56] VITALS: BP 109/72
[2020-08-02 05:10] VITALS: BP 118/71
[2020-08-02] MEDS: glipiZIDE 5 MG TAB PO SCH (06:44)
[2020-08-02] MEDS: metFORMIN HYDROCHLORIDE 500 MG TAB PO SCH ×2 (08:05→17:44)
[2020-08-02 09:00] VITALS: BP 138/83
[2020-08-02] MEDS: ASPirin 81 mg TAB PO SCH (09:35)
[2020-08-02] MEDS: METOPROLOL SUCCINATE XL 50 MG TAB PO SCH (09:36)
[2020-08-02] MEDS: CLOPIDOGREL BISULFATE 75 MG TAB PO SCH (09:36)
[2020-08-02] MEDS: PANTOPRAZOLE 40 MG TAB PO SCH (09:36)
[2020-08-02 13:00] VITALS: BP 117/82
[2020-08-02 16:44] VITALS: BP 117/72
[2020-08-02 22:15] VITALS: BP 103/52
[2020-08-02 22:19] VITALS: BP 111/75
[2020-08-03 06:04] VITALS: BP 96/58
[2020-08-03] MEDS: glipiZIDE 5 MG TAB PO SCH (06:56)
[2020-08-03] MEDS: metFORMIN HYDROCHLORIDE 500 MG TAB PO SCH ×2 (07:53→17:19)
[2020-08-03 09:00] VITALS: BP 119/73
[2020-08-03] MEDS: CLOPIDOGREL BISULFATE 75 MG TAB PO SCH (09:34)
[2020-08-03] MEDS: ASPirin 81 mg TAB PO SCH (09:34)
[2020-08-03] MEDS: PANTOPRAZOLE 40 MG TAB PO SCH (09:34)
[2020-08-03] MEDS: METOPROLOL SUCCINATE XL 50 MG TAB PO SCH (09:35)
[2020-08-03 13:00] VITALS: BP 111/76
[2020-08-03 17:00] VITALS: BP 112/72
[2020-08-03 22:00] VITALS: BP 120/79
[2020-08-03] MEDS: TEMAZEPAM 15 MG CAP PO PRN (22:16)
[2020-08-04 05:00] VITALS: BP 116/71
[2020-08-04 06:13] LABS: Basophils # (auto) 0 10 ^3/uL (0-0.2); Basophils % (auto) 0.4 % (0.0-2.0); Eosinophils # (auto) 0.1 10 ^3/uL (0-0.8); Eosinophils % (auto) 1.3 % (0.0-7.0); Hemoglobin 14.7 g/dL (13.5-17.5); Lymphocytes # (auto) 2.8 10 ^3/uL (0.4-5.4); Lymphocytes % (auto) 28.4 % (10.0-50.0); Mean Corpuscular Hgb Conc. 34.1 g/dL (32.0-36.0); Mean Corpuscular Volume 79.2 fL (80.0-100.0); Monocytes # (auto) 0.8 10 ^3/uL (0-1.3); Monocytes % (auto) 8.5 % (0.0-12.0); Neutrophils # (auto) 6.1 10 ^3/uL (1.6-8.6); Neutrophils % (auto) 61.4 % (37.0-80.0); Platelet Count (auto) 289 10^3/uL (140-450); Red Blood Cells 5.43 10^6/uL (4.5-5.90); Red Cell Distribution Width 16.2 % (11.8-14.3); White Blood Cell 9.9 10^3/uL (4.4-10.8)
[2020-08-04 06:26] LABS: INR 1.03 (0.9-1.15); Partial Thromboplastin Time 25.9 sec (23.0-31.2)
[2020-08-04 06:34] LABS: Potassium 3.7 mmol/L (3.5-5.1)
[2020-08-04 06:41] LABS: BUN/Creatinine Ratio 25.3; Calcium 8.9 mg/dL (8.5-10.1)
[2020-08-04] MEDS: glipiZIDE 5 MG TAB PO SCH (07:00)
[2020-08-04] MEDS: metFORMIN HYDROCHLORIDE 500 MG TAB PO SCH ×2 (08:00→17:12)
[2020-08-04 08:27] VITALS: BP 116/79
[2020-08-04] MEDS: ASPirin 81 mg TAB PO SCH (09:15)
[2020-08-04] MEDS: CLOPIDOGREL BISULFATE 75 MG TAB PO SCH (09:16)
[2020-08-04] MEDS: PANTOPRAZOLE 40 MG TAB PO SCH (09:16)
[2020-08-04] MEDS: METOPROLOL SUCCINATE XL 50 MG TAB PO SCH (09:16)
[2020-08-04] MEDS ORDERED: LIDOCAINE 2%HCL (LOCAL ANESTH.) INJ 20ML MDV ONE (10:44)
[2020-08-04] MEDS ORDERED: IOHEXOL 350 MG/ML 100ML IJ ONE (10:44)
[2020-08-04] MEDS ORDERED: ANGIOMAX 250 MG VIAL IV ONE (11:12)
[2020-08-04] MEDS ORDERED: diphenhdrAMINE HCL 50 MG/1 ML VL ONE (11:12)
[2020-08-04] MEDS ORDERED: MIDAZOLAM HCL 1MG/1ML-2 ML VIAL ONE (11:13)
[2020-08-04] MEDS ORDERED: SODIUM CHL 0.9% 0 ML ONE (11:13)
[2020-08-04] MEDS ORDERED: fentaNYL CITRATE 100 MCG/2 ML VL ONE (11:13)
[2020-08-04 14:00] VITALS: BP 114/91
[2020-08-04 16:18] VITALS: BP 97/74
[2020-08-04 22:00] VITALS: BP 107/79
[2020-08-04] MEDS: TEMAZEPAM 15 MG CAP PO PRN (22:38)
[2020-08-05 05:00] VITALS: BP 107/71
[2020-08-05] MEDS: glipiZIDE 5 MG TAB PO SCH (07:00)
[2020-08-05] MEDS: metFORMIN HYDROCHLORIDE 500 MG TAB PO SCH ×2 (08:00→17:34)
[2020-08-05 09:00] VITALS: BP 105/72
[2020-08-05] MEDS: CLOPIDOGREL BISULFATE 75 MG TAB PO SCH (09:24)
[2020-08-05] MEDS: PANTOPRAZOLE 40 MG TAB PO SCH (09:24)
[2020-08-05] MEDS: ASPirin 81 mg TAB PO SCH (09:24)
[2020-08-05] MEDS: METOPROLOL SUCCINATE XL 50 MG TAB PO SCH (09:25)
[2020-08-05 13:00] VITALS: BP 126/81
[2020-08-05 17:00] VITALS: BP 119/80
[2020-08-05] MEDS ORDERED: ATOR20TA50 PO (17:35)
[2020-08-05 17:45] VITALS: BP 105/72
== END 2020-08-05 18:18 | DRG 287 ==
LOC: ER 12:21 → EEVIPCON 12:21 → TELE 12:22 → TELE-WESTW 22:20
PROVIDERS: ADMIT Internal Medicine; ATTEND Internal Medicine
PROC: B2111ZZ Fluoroscopy of Multiple Coronary Arteries using Low Osmolar Contrast (ICD-10-PCS; principal; 2020-08-04)
PROC: 4A023N7 Measurement of Cardiac Sampling and Pressure, Left Heart, Percutaneous Approach (ICD-10-PCS; 2020-08-04)
PROC: B2151ZZ Fluoroscopy of Left Heart using Low Osmolar Contrast (ICD-10-PCS; 2020-08-04)
PROC: B41J1ZZ Fluoroscopy of Other Lower Arteries using Low Osmolar Contrast (ICD-10-PCS; 2020-08-04)
PROC: B3121ZZ Fluoroscopy of Left Subclavian Artery using Low Osmolar Contrast (ICD-10-PCS; 2020-08-04)
PROC: B31J1ZZ Fluoroscopy of Left Upper Extremity Arteries using Low Osmolar Contrast (ICD-10-PCS; 2020-08-04)
PROC: B2131ZZ Fluoroscopy of Multiple Coronary Artery Bypass Grafts using Low Osmolar Contrast (ICD-10-PCS; 2020-08-04)
PROC: B3101ZZ Fluoroscopy of Thoracic Aorta using Low Osmolar Contrast (ICD-10-PCS; 2020-08-04)
DX: I25.110 Atherosclerotic heart disease of native coronary artery with unstable angina pectoris (principal); E11.9 Type 2 diabetes mellitus without complications; I10 Essential (primary) hypertension; E66.9 Obesity, unspecified; D64.9 Anemia, unspecified; I25.82 Chronic total occlusion of coronary artery; Z83.3 Family history of diabetes mellitus; Z79.84 Long term (current) use of oral hypoglycemic drugs; Z68.35 Body mass index [BMI] 35.0-35.9, adult; Z79.899 Other long term (current) drug therapy; Z95.1 Presence of aortocoronary bypass graft; Z79.01 Long term (current) use of anticoagulants; Z79.82 Long term (current) use of aspirin; Z90.49 Acquired absence of other specified parts of digestive tract
CPT/HCPCS: 36415; 71045; 71275; 75600; 75710; 78452; 80048; 80053; 82962; 83735; 83880; 84443; 84484; 85025; 85610; 85730; 87081; 93005; 93017; 93459; 96365; 99152; G0378; J0153; J2250